=== PATIENT | male | born 1960 | race Caucasian/White ===

== ENCOUNTER 2018-11-01 15:18 | Emergency (ER) | payer SELFPAY ==
[2018-11-01] MEDS ORDERED: Tetracaine HCl/PF 0.5% 4 ML Bottle EYEBOTH ONE (16:13)
--- NOTE | 2018-11-01 17:10 | EDM.PDOC ---
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 Onto the eye became so painful last evening that he stopped in [facility], [place] at the emergency room for an examination he brings with him some discharge papers which indicate that he had a CT of the left orbit without and with contrast and was diagnosed with a. Orbital cellulitis of the left I some laboratory testing was also done. The results of that are not included with the discharge papers he was treated with Ceftin ear 300 twice daily and Percocet and sent on his way. 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 He has had no fever or constitutional symptoms no headache. He has a history of hypertension dyslipidemia coronary artery disease obesity and diabetes mellitus well controlled. Review of systems: As per history of present illness and below otherwise all systems reviewed and negative. Past medical history: As per history of present illness and as reviewed below otherwise noncontributory. Surgical history: As per history of present illness and as reviewed below otherwise noncontributory. Social history: No reported history of drug or alcohol abuse. Family history: As per history of present illness and as reviewed below otherwise noncontributory. Physical exam: HEENT: Atraumatic, normocephalic, pupils reactive, negative for conjunctival pallor or scleral icterus, mucous membranes moist, throat clear, neck supple, nontender, trachea midline. Lungs: Clear to auscultation, breath sounds equal bilaterally, chest nontender. Heart: S1S2, regular, negative for clicks, rubs, or JVD. Abdomen: Soft, nondistended, nontender. Negative for masses or hepatosplenomegaly. Negative for costovertebral tenderness. Pelvis: Stable nontender. Genitourinary: Deferred. Rectal: Deferred. Extremities: Atraumatic, negative for cords or calf pain. Neurovascular unremarkable. Neuro: Awake, alert, oriented. Cranial nerves II through XII unremarkable. Cerebellum unremarkable. Motor and sensory unremarkable throughout. Exam nonfocal. Diagnostics: [] Therapeutics: [] Impression: [] Plan: [] Definitive disposition and diagnosis as appropriate pending reevaluation and review of above. Left Eye Pain Score (Numeric/FACES): 2 - Related Data Allergies Allergy/AdvReac Type Severity Reaction Status Date / Time No Known Allergies Allergy Verified 11/01/18 16:07 Home Meds: Home Meds Aspirin [Adult Low Dose Aspirin EC] 81 mg PO DAILY 11/01/18 [History] Carvedilol [Coreg] 12.5 mg PO BID 11/01/18 [History] Cefdinir 300 mg PO BID 11/01/18 [History] Clopidogrel [Plavix] 75 mg PO DAILY 11/01/18 [History] Losartan [Cozaar] 100 mg PO DAILY 11/01/18 [History] Simvastatin [Zocor] 40 mg PO DAILY 11/01/18 [History] amLODIPine [Norvasc] 5 mg PO DAILY 11/01/18 [History] metFORMIN [Glucophage XR] 500 mg PO BID 11/01/18 [History] oxyCODONE HCl/Acetaminophen [Endocet 5-325 Tablet] 1 tab PO Q4H PRN 11/01/18 [ History] Past Medical History Cardiovascular History: Reports: High Cholesterol, Hypertension Endocrine/Metabolic History: Reports: Diabetes, Type II Social & Family History - Family History Family Medical History: Noncontributory - Tobacco Use Smoking Status *Q: Never Smoker - Recreational Drug Use Recreational Drug Use: No ED ROS GENERAL - Review of Systems Review Of Systems: ROS reveals no pertinent complaints other than HPI. ED EXAM GENERAL W FULL EYE - Physical Exam Exam: See Below Exam Limited By: No Limitations General Appearance: Alert, No Apparent Distress Eye Exam: Left Eye: Vision Changes (Reports "blind"), Bilateral Eye: EOMI, PERRL Eyelids: Left: Edema (Mild) Conjunctiva & Sclera: Left: Conjunctival Edema, Discharge, Injected Extraocular Movements: Bilateral: Intact Pupillary Size: Bilateral: 4 mm Ears: Normal External Exam Nose: Normal Inspection Throat/Mouth: Normal Inspection Head: Atraumatic, Normocephalic Neck: Normal Inspection Neurological: Alert, Oriented Psychiatric: Normal Affect, Normal Mood Skin Exam: Warm, Dry, Intact, Normal Color, No Rash Course - Vital Signs Last Recorded V/S: Last Vital Signs Temp 36.6 C 11/01/18 16:02 Pulse 83 11/01/18 16:02 Resp 18 11/01/18 16:02 BP 153/114 H 11/01/18 16:02 Pulse Ox 96 11/01/18 16:02 - Orders/Labs/Meds Meds: Medications Discontinued Medications Generic Name Dose Route Start Last Admin Trade Name Ursula PRN Reason Stop Dose Admin Tetracaine HCl 1 ml 11/01/18 16:13 Tetracaine 0.5% Steri-Unit Yecenia EYEBOTH 11/01/18 16:14 ASDIRECTED ONE - Re-Assessments/Exams Free Text/Narrative Re-Assessment/Exam: 11/01/18 17:[address] Jing M.D., obstetrician and gynaecologist. Report of clinical condition , patient history and pictures of left eye. He will see the patient in the ophthalmology clinic 20 minutes. Departure - Departure Time of Disposition: 17:10 Disposition: Home, Self-Care 01 Condition: Fair Clinical Impression: Anterior uveitis - Discharge Information Referrals: PCP,Unknown [Primary Care Provider] - Zachery Ch [Ordering Only Provider] - Additional Instructions: The following information is given to patients seen in the emergency department who are being discharged to home. This information is to outline your options for follow-up care. We provide all patients seen in our emergency department with a follow-up referral. The need for follow-up, as well as the timing and circumstances, are variable depending upon the specifics of your emergency department visit. If you don't have a primary care physician on staff, we will provide you with a referral. We always advise you to contact your personal physician following an emergency department visit to inform them of the circumstance of the visit and for follow-up with them and/or the need for any referrals to a consulting specialist. The emergency department will also refer you to a specialist when appropriate. This referral assures that you have the opportunity for follow-up care with a specialist. All of these measure are taken in an effort to provide you with optimal care, which includes your follow-up. Under all circumstances we always encourage you to contact your private physician who remains a resource for coordinating your care. When calling for follow-up care, please make the office aware that this follow-up is from your recent emergency room visit. If for any reason you are refused follow-up, please contact the [facility] Emergency Department at and asked to speak to the emergency department charge nurse. 1. Report to [facility] eye care clinic directly from here. Dr. Ch,
== END 2018-11-01 17:17 | disposition home or self-care (01) ==
LOC: MW.ED 15:18
DX: H20.9 Unspecified iridocyclitis (principal); I10 Essential (primary) hypertension; E78.00 Pure hypercholesterolemia, unspecified; E11.9 Type 2 diabetes mellitus without complications; Z79.82 Long term (current) use of aspirin; Z79.899 Other long term (current) drug therapy
CPT/HCPCS: 99283